=== PATIENT | female | born 1975 | race Caucasian/White ===

== ENCOUNTER 2017-04-05 07:27 | Emergency (ER) | payer OTHER ==
[~2017-04-05] VITALS: Ht 165.1 cm; Wt 68.2 kg
[2017-04-05] MEDS ORDERED: AMOXICILLIN875 MG PO (07:49)
[2017-04-05 07:57] VITALS: BP 134/79
== END 2017-04-05 07:57 | disposition home or self-care (01) ==
LOC: ED 07:27
DX: K05.219 Aggressive periodontitis, localized, unspecified severity (principal)
CPT/HCPCS: J1885